=== PATIENT | female | born 1995 | race Caucasian/White ===

== ENCOUNTER 2019-08-08 04:22 | Emergency (ER) | payer SELFPAY ==
[2019-08-08 05:33] LABS: #Eosinphils 0.1 thou/uL (0.0-0.7); #Monocytes 0.5 thou/uL (0.11-0.59); #Neutrophils 8.7 thou/uL (1.40-6.50); %Basophils 0.3 % (0.0-1.0); %Lymphocytes 17.6 % (21.0-51.0); %Monocytes 4.3 % (0.0-10.0); %Neutrophils 76.8 % (42.0-75.0); Hemoglobin 13.5 g/dL (12.0-16.0); Mean Corpuscular HGB CONC 34.8 g/dL (32.0-36.0); Mean Corpuscular Hemoglobin 31.3 pg (27.0-31.0); Mean Platelet Volume 7.1 fL (7.4-10.4); Platelet Count 237 thou/uL (130-400); RBC Distribution Width 10.8 % (11.5-14.5); Red Blood Cell (RBC) Count 4.32 mill/uL (4.20-5.40); White Blood Cell (WBC) Count 11.3 thou/uL (4.8-10.8)
[2019-08-08 05:42] LABS: BHCG - Serum Negative (NEGATIVE); Pregs Control Background? CLEAR/WHITE (CLR/WHITE); Pregs Control Bar Appear? YES (CONTROL BAR)
[2019-08-08 05:49] LABS: ALT (SGPT) 21 U/L (8-55); AST (SGOT) 32 U/L (5-34); Alkaline Phosphatase 56 U/L (40-110); Anion Gap 14 mmol/L (10-20); BUN (Urea Nitrogen) 11 mg/dL (7.0-18.7); Bilirubin, Total 0.4 mg/dL (0.2-1.2); Calc. Creatinine Clearance 0 mL/min (70-130); Calcium 8.5 mg/dL (7.8-10.44); Carbon Dioxide 20 mmol/L (22-29); Chloride 110 mmol/L (98-107); Estimated GFR-MDRD 83; Globulin 2.5 g/dL (2.4-3.5); Glucose 104 mg/dL (70-105); Lipase 53 U/L (8-78); Potassium 3.7 mmol/L (3.5-5.1); Protein, Total 6.5 g/dL (6.0-8.3); Sodium 140 mmol/L (136-145)
[2019-08-08] MEDS ORDERED: Fentanyl 100 MCG/2 ML VIAL ONE (06:03)
[2019-08-08] MEDS ORDERED: Bacitracin 1 PK ONE (06:41)
[2019-08-08] MEDS ORDERED: HYDROcodone/Acetaminophen 5/325 mg Tablet ONE (07:04)
[2019-08-08] MEDS ORDERED: Acetaminophen 500 MG TAB ONE (07:09)
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
[2019-08-08] MEDS ORDERED: Iopamidol-370 76% 500 ML 1 ML ONE (14:14)
== END 2019-08-08 07:35 | disposition home or self-care (01) ==
LOC: ERS 04:22
DX: S91.301A Unspecified open wound, right foot, initial encounter (principal); S60.221A Contusion of right hand, initial encounter; S70.01XA Contusion of right hip, initial encounter; S00.83XA Contusion of other part of head, initial encounter; S50.811A Abrasion of right forearm, initial encounter; V89.2XXA Person injured in unspecified motor-vehicle accident, traffic, initial encounter; Y92.410 Unspecified street and highway as the place of occurrence of the external cause
CPT/HCPCS: 36415; 70450; 71260; 72125; 72170; 74177; 80053; 80307; 83690; 84703; 85025; 96374; G0390; J3010; Q9967